=== PATIENT | female | born 1965 ===

== ENCOUNTER 2017-05-24 07:29 | Day surgery (SDC) | payer OTHER ==
[2017-05-23 12:50] VITALS: BMI 27.4
[~2017-05-24 07:29] MED LIST: LACTATED RINGERS 1,000 ML IV SCH
[2017-05-24 07:54] VITALS: TEMP 97.7
[2017-05-24] MEDS ORDERED: LIDOCAINE 1% 20 ML VIAL (10MG/ML) FOR IV START INTRADERMA ONE (08:01)
[2017-05-24] MEDS ORDERED: PROPOFOL 10 MG/ML 20 ML VIAL IV ONE (08:26)
--- NOTE | 2017-05-24 08:48 | P.PCN ---
Date of Procedure: 05/24/17 Preoperative Diagnosis: Postoperative Diagnosis: Procedure(s) Performed: BRIEF HISTORY: Patient is a 51-year-old pleasant white female, scheduled for an elective colonoscopy as a part of screening for colorectal neoplasia. She does have strong family history of colon cancer diagnosed in her father at age 70, maternal grandmother in her 60s and paternal aunt at age 60. PROCEDURE PERFORMED: Colonoscopy. PREOPERATIVE DIAGNOSIS: Screening for colon cancer/strong family history of colon cancer. IV sedation per Anesthesia. PROCEDURE: After informed consent was obtained, the patient, was brought into the endoscopy unit. IV sedation was administered by Anesthesia under continuous monitoring. Digital rectal examination was normal. Initially the Olympus CF- 160 flexible video colonoscope was then inserted in the rectum, gradually advanced into the cecum without any difficulty. Careful examination was performed as the scope was gradually being withdrawn. Ileocecal valve and the appendiceal orifice were visualized and appeared normal. Prep was excellent. Mucosa of the cecum, ascending colon, transverse colon, descending colon, sigmoid colon, and rectum appeared normal. Retroflexion was performed in the rectum and no lesions were seen. The patient tolerated the procedure well. IMPRESSION: Normal-appearing colon from rectum to cecum . RECOMMENDATIONS: Findings of this examination were discussed with the patient as well as her family. She was advised to have a repeat screening colonoscopy in 5 years because of the strong family history of colon cancer. Implants: Indications for Procedure: Operative Findings: Description of Procedure:
[2017-05-24 08:53] VITALS: RESP 16
[2017-05-24 09:10] VITALS: PULSE 53
[2017-05-24 09:18] VITALS: BP 102/72
== END 2017-05-24 09:30 | disposition home or self-care (01) ==
LOC: ORWHC2ENDO 07:29
PROVIDERS: ATTEND Internal Medicine Gastroenterology
DX: Z12.11 Encounter for screening for malignant neoplasm of colon (principal); Z80.0 Family history of malignant neoplasm of digestive organs
CPT/HCPCS: J2704; G0105